=== PATIENT | female | born 2000 | race Two or more races ===

== ENCOUNTER 2020-08-21 00:17 | Emergency (ER) | payer SELFPAY ==
[~2020-08-21] VITALS: Ht 157.5 cm; Wt 72.6 kg
[2020-08-21] MEDS ORDERED: SODIUM CHLORIDE 0.9% 1,000 ML IV ONE ×2 (00:45→01:30)
[2020-08-21] MEDS ORDERED: ONDANSETRON HCL 4 MG/2 ML VIAL IV ONE (00:45)
[2020-08-21 01:02] LABS: Nucleated Red Blood Cells % 0.1 %; White Blood Cell 10.4 10^3/uL (4.4-10.8)
[2020-08-21 01:17] VITALS: BP 136/98
[2020-08-21 01:19] LABS: BUN/Creatinine Ratio 14.1; Calcium 8.9 mg/dL (8.5-10.1); Potassium 3.5 mmol/L (3.5-5.1)
[2020-08-21 01:23] LABS: Bilirubin, Total 0.3 mg/dL (0.2-1.0); Total Protein 7.9 g/dL (6.4-8.2)
[2020-08-21 01:24] LABS: Basophils # (auto) 0.1 10 ^3/uL (0-0.2); Basophils % (auto) 1.1 % (0.0-2.0); Eosinophils # (auto) 0.2 10 ^3/uL (0-0.8); Eosinophils % (auto) 1.8 % (0.0-7.0); Hemoglobin 13.6 g/dL (12.2-16.2); Lymphocytes # (auto) 1.8 10 ^3/uL (0.4-5.4); Lymphocytes % (auto) 17.4 % (10.0-50.0); Mean Corpuscular Hemoglobin 30.9 pg (28.0-32.0); Mean Corpuscular Hgb Conc. 33.9 g/dL (32.0-36.0); Mean Corpuscular Volume 91.1 fL (80.0-100.0); Monocytes # (auto) 0.3 10 ^3/uL (0-1.3); Monocytes % (auto) 3.2 % (0.0-12.0); Neutrophils % (auto) 76.5 % (37.0-80.0); Red Blood Cells 4.39 10^6/uL (4.0-5.20); Red Cell Distribution Width 13.4 % (11.8-14.3)
[2020-08-21 02:10] LABS: Urine Bacteria NONE SEEN /hpf (None Seen); Urine Blood Negative /uL (Negative); Urine Mucus FEW (None Seen); Urine Specific Gravity 1.025 (1.001-1.035); Urine WBC 8 /hpf (0 - 5)
[2020-08-21 02:50] LABS: Alcohol, Urine < 3.0 mg/dL (0-10); Amphetamine Screen, Urine NEGATIVE (NEGATIVE); Barbiturate Scree,Urine NEGATIVE (NEGATIVE); Benzodiazephine Screen, Urine NEGATIVE (NEGATIVE); Cannabinoid Screen, Urine POSITIVE (NEGATIVE); Cocaine Screen, Urine NEGATIVE (NEGATIVE); Opiate Scree,Urine NEGATIVE (NEGATIVE); Phencyclidine Screen, Urine NEGATIVE (NEGATIVE)
== END 2020-08-21 02:42 | disposition home or self-care (01) ==
LOC: ER 00:17
DX: F12.10 Cannabis abuse, uncomplicated (principal); R11.2 Nausea with vomiting, unspecified; R42 Dizziness and giddiness
CPT/HCPCS: 36415; 80053; 80307; 81001; 81025; 84702; 85025; 96361; 96374; 99283; J2405; J7030

== ENCOUNTER 2020-12-25 21:21 | Emergency (ER) | payer MEDICAID, OTHER ==
[~2020-12-25] VITALS: Ht 157.5 cm; Wt 75.7 kg
[2020-12-25] MEDS ORDERED: ONDANSETRON HCL 4 MG/2 ML VIAL IV ONE (21:45)
[2020-12-25] MEDS ORDERED: SODIUM CHLORIDE 0.9% 500 ML IV ONE (21:45)
[2020-12-25] MEDS ORDERED: MORPHINE SULFATE 4 MG/ML SYR/VIAL IV ONE (21:45)
[2020-12-25] MEDS ORDERED: TETANUS-DIPTH-ACEL PERTUSSIS 0.5ML SYR Tdap IM ONE (21:45)
[2020-12-25] MEDS ORDERED: ceFAZolin 1GM/50ML 50 ML IV ONE (21:45)
[2020-12-25 22:45] LABS: Basophils # (auto) 0.1 10 ^3/uL (0-0.2); Basophils % (auto) 0.5 % (0.0-2.0); Eosinophils # (auto) 0 10 ^3/uL (0-0.8); Eosinophils % (auto) 0.4 % (0.0-7.0); Hematocrit 44.2 % (36.0-46.0); Hemoglobin 14.5 g/dL (12.2-16.2); Lymphocytes # (auto) 1.2 10 ^3/uL (0.4-5.4); Lymphocytes % (auto) 10.9 % (10.0-50.0); Mean Corpuscular Hgb Conc. 32.9 g/dL (32.0-36.0); Mean Corpuscular Volume 91.3 fL (80.0-100.0); Monocytes # (auto) 0.5 10 ^3/uL (0-1.3); Monocytes % (auto) 4.3 % (0.0-12.0); Neutrophils # (auto) 9.4 10 ^3/uL (1.6-8.6); Neutrophils % (auto) 83.9 % (37.0-80.0); Red Blood Cells 4.84 10^6/uL (4.0-5.20); Red Cell Distribution Width 13.2 % (11.8-14.3); White Blood Cell 11.3 10^3/uL (4.4-10.8)
[2020-12-25 22:59] LABS: INR 0.94 (0.9-1.15); Partial Thromboplastin Time 25.9 sec (23.6-33.0)
[2020-12-25 23:09] LABS: Albumin 4.4 g/dL (3.4-5.0); Calcium 9.6 mg/dL (8.5-10.1); Potassium 3.4 mmol/L (3.5-5.1)
[2020-12-25 23:13] LABS: BUN/Creatinine Ratio 14.1; Bilirubin, Total 0.3 mg/dL (0.2-1.0); Total Protein 8.6 g/dL (6.4-8.2)
[2020-12-26 00:18] VITALS: BP 93/76
== END 2020-12-26 00:36 | disposition short-term general hospital (02) ==
LOC: ER 21:23
DX: S62.661A Nondisplaced fracture of distal phalanx of left index finger, initial encounter for closed fracture (principal); S62.643A Nondisplaced fracture of proximal phalanx of left middle finger, initial encounter for closed fracture; S62.645A Nondisplaced fracture of proximal phalanx of left ring finger, initial encounter for closed fracture; S62.607A Fracture of unspecified phalanx of left little finger, initial encounter for closed fracture; V86.59XA Driver of other special all-terrain or other off-road motor vehicle injured in nontraffic accident, initial encounter; Y93.89 Activity, other specified; Y92.488 Other paved roadways as the place of occurrence of the external cause; Y99.8 Other external cause status
CPT/HCPCS: 29125; 36415; 73130; 80053; 85025; 85610; 85730; 90471; 90715; 96365; 96375; 99285; J0690; J2270; J2405; J7030

== ENCOUNTER 2021-01-13 20:18 | Emergency (ER) | payer MEDICAID ==
[~2021-01-13] VITALS: Ht 157.5 cm; Wt 76.7 kg
[2021-01-13 20:18] VITALS: BP 129/80
== END 2021-01-13 21:15 | disposition left against medical advice (07) ==
LOC: ER 20:23
DX: R11.2 Nausea with vomiting, unspecified (principal); Z53.21 Procedure and treatment not carried out due to patient leaving prior to being seen by health care provider